=== PATIENT | female | born 1975 ===

== ENCOUNTER 2017-06-09 19:57 | Emergency (ER) | payer SELFPAY ==
[2017-06-09 20:04] VITALS: BP 105/59
[2017-06-09] MEDS ORDERED: MOTRIN PO ONE (20:28)
== END 2017-06-09 20:53 | disposition left against medical advice (07) ==
LOC: ED 19:57
DX: R07.9 Chest pain, unspecified (principal); Z53.21 Procedure and treatment not carried out due to patient leaving prior to being seen by health care provider
CPT/HCPCS: 93005; 93010